=== PATIENT | female | born 1970 | race Caucasian/White ===

== ENCOUNTER 2023-03-11 09:50 | Day surgery (SDC) | payer OTHER ==
[~2023-03-11] VITALS: Ht 175.3 cm; Wt 93.0 kg
[2023-03-11] MEDS ORDERED: HYDCHL25 (10:21)
[2023-03-11 12:16] VITALS: BP 147/85
== END 2023-03-11 12:15 | disposition home or self-care (01) ==
LOC: ORSCSDS 09:50
PROVIDERS: Internal Medicine Gastroenterology
PROC: 0DBL8ZX Excision of Transverse Colon, Via Natural or Artificial Opening Endoscopic, Diagnostic (ICD-10-PCS; principal; 2023-03-11 11:15)
DX: Z12.11 Encounter for screening for malignant neoplasm of colon (principal); K63.5 Polyp of colon; I10 Essential (primary) hypertension; Z79.899 Other long term (current) drug therapy
CPT/HCPCS: 88305; J2704; J7120